=== PATIENT | female | born 1975 | race Caucasian/White ===

== ENCOUNTER 2021-07-01 17:14 | Emergency (ER) | payer OTHER, SELFPAY ==
[2021-07-01 18:15] VITALS: BP 125/82; PULSE 67; RESP 16; TEMP 36.1; O2SAT 100
--- NOTE | 2021-07-01 19:39 | PC.NURSE ---
Pt at intake desk stating I'm going to go home. I've been here for a while. I'll follow up with my doctor in the am. pt ambulated out of ED with steady gait. No distress noted.
== END 2021-07-02 03:20 | disposition left against medical advice (07) ==
LOC: ANHED 20:02
PROVIDERS: PCP Family Medicine
DX: R10.9 Unspecified abdominal pain (principal)
CPT/HCPCS: 99199

== ENCOUNTER 2023-08-27 08:21 | Outpatient (CLI) | payer OTHER, SELFPAY ==
[2023-08-27 08:48] LABS: Basophils Percent Auto 0.8 % (0.2-1.2); Eosinophils Absolute Auto 0.1 K/mm3 (0-0.3); Eosinophils Percent Auto 2.2 % (0-4.4); Hematocrit 41.7 % (37.0-47.0); Hemoglobin 12.9 g/dL (12.0-15.0); Immature Granulocyte Absolute 0.01 K/mm3 (0.00-0.031); Immature Granulocyte Percent A 0.2 % (0-0.5); Lymphocytes Absolute Auto 1.53 K/mm3 (0.9-3.2); Lymphocytes Percent Auto 30.2 % (18.3-44.2); Mean Corpuscular HGB Conc 30.9 g/dl (32-36); Mean Corpuscular Hemoglobin 26.5 pg (26-34); Mean Corpuscular Volume 85.8 fl (80-100); Mean Platelet Volume 10.4 fl (7.4-10.4); Monocytes Absolute Auto 0.3 K/mm3 (0.1-0.6); Monocytes Percent Auto 5.3 % (2.6-8.5); Neutrophils Absolute Auto 3.1 K/mm3 (1.3-6.7); Neutrophils Percent Auto 61.3 % (45.5-73.1); Platelet Count Result 279 k/mm3 (150-375); Red Blood Count 4.86 M/mm3 (4.2-5.4); Red Cell Distribution Width 15.5 % (11.5-14.5); White Blood Count 5.1 K/mm3 (4.5-10.0)
[2023-08-27 09:00] LABS: Alanine Aminotransferase 16 U/L (6-35); Albumin Level 4.3 g/dL (3.5-5.1); Alkaline Phosphatase 62 U/L (38-126); Anion Gap 6 mmol/L (8-16); Aspartate Amino Transferase 24 U/L (14-36); Bilirubin,Total 0.7 mg/dL (0.2-1.3); Blood Urea Nitrogen 13 mg/dL (7-17); Calcium 8.9 mg/dL (8.4-10.2); Carbon Dioxide 26 mmol/L (22-30); Chloride 103 mmol/L (98-107); Cholesterol 222 mg/dL (0-200); Estimated Glomerular Filt Rate > 60; Glucose 116 mg/dL (65-110); HDL Direct 80 mg/dL; Potassium 4.2 mmol/L (3.4-5.0); Sodium 135 mmol/L (137-145); Triglycerides 77 mg/dL (<150)
[2023-08-27 09:11] LABS: LDL Cholesterol Direct 111 mg/dL
[2023-08-27 09:31] LABS: Thyroid Stimulating Hormone 0.946 uIU/mL (0.465-4.680)
[2023-09-01 08:21] LABS: FSH 34.2 mIU/mL (***)
[2023-09-03 17:37] LABS: Estrogen 187 pg/mL
== END 2023-08-27 08:22 | disposition home or self-care (01) ==
LOC: ANHLAB 08:25
PROVIDERS: PCP Family Medicine; Visit Provider Family Medicine
DX: R23.2 Flushing (principal); R51.9 Headache, unspecified; Z13.220 Encounter for screening for lipoid disorders
CPT/HCPCS: 36415; 80053; 80061; 82672; 83001; 84443; 85025

== ENCOUNTER 2023-10-05 07:54 | Outpatient (CLI) | payer OTHER, SELFPAY ==
--- NOTE | ~2023-10-05 | MM_ITS ---
EXAMINATION: MM screening sammi BI w nhung HISTORY: Screening TECHNIQUE: Craniocaudal and mediolateral oblique 3-D tomosynthesis images were obtained and synthetic 2-D images were generated. CAD analysis was submitted and interpreted. COMPARISON: No prior mammogram is available for comparison at this institution. BREAST PARENCHYMAL COMPOSITION: There are scattered areas of fibroglandular density. FINDINGS: There is no evidence of suspicious mass, calcification, or architectural distortion to sugg est malignancy in either breast. There has been no suspicious interval change. IMPRESSION: 1. No mammographic evidence of malignancy. 2. Recommend routine screening mammography in one year. BI-RADS Category 1: Negative Reviewed, dictated and finalized at location A.
== END 2023-10-05 07:55 | disposition home or self-care (01) ==
LOC: ANHIMG 07:56
PROVIDERS: PCP Family Medicine; Visit Provider Family Medicine
DX: Z12.31 Encounter for screening mammogram for malignant neoplasm of breast (principal)
CPT/HCPCS: 77063; 77067

== ENCOUNTER 2023-10-31 09:14 | Emergency (ER) | payer OTHER, SELFPAY ==
[2023-10-31] VITALS (8 sets, daily range): BP systolic 118–134; BP diastolic 68–78; PULSE 58–67; RESP 14–18; TEMP 35.9; O2SAT 96–100
--- NOTE | ~2023-10-31 | XR_ITS ---
EXAMINATION: XR chest 1V portable 10/31/2023 10:06 INDICATION: Right arm and leg numbness PROCEDURE: AP portable chest COMPARISON: No prior studies for comparison. FINDINGS: The lungs are clear. The cardiomediastinal silhouette is within normal limits. There are no pleural effusions. There is no pneumothorax suspected. IMPRESSION: 1: NO ACUTE CARDIOPULMONARY DISEASE. Reviewed, dictated and finalized at location B.
--- NOTE | ~2023-10-31 | CT_ITS ---
EXAMINATION: CTA brain carotid DATE: 10/31/2023 12:02 INDICATION: Right-sided paresthesias. TECHNIQUE: Computed tomographic angiography (CTA) of the head was performed without and with 100 mL O mnipaque-350 intravenous contrast. CTA of the neck was performed with intravenous contrast. Automated exposure control and iterative reconstruction technique were employed. The dose-length product was 1 822.50 mGy-cm. Maximum intensity projection and volume rendered 3D-reconstructions were created by nicole garcia technologist on a separate workstation. COMPARISON: None. FINDINGS: HEAD CTA: There is no intracranial hemorrhage, acute infarction, or abnormal intracranial mass lesion . The ventricles are normal in size. The orbits are normal. The mastoid air cells are normal. The par anasal sinuses are clear. The vertebral arteries are codominant. There is no significant stenosis of basilar artery or the posterior cerebral arteries. The posterior communicating arteries are normal. T here is no significant stenosis of the intracranial internal carotid arteries or anterior or middle c erebral arteries. Anterior communicating artery is normal. There is no aneurysm. NECK CTA: There are no pathologically enlarged lymph nodes. There is no significant stenosis of the v ertebral arteries. There is minimal plaque in the proximal internal carotid arteries. There is 0% raimundo nosis of the proximal right internal carotid artery relative to normal distal artery lumen diameter ( NASCET criteria). There is 0% stenosis of the proximal left internal carotid artery relative to estephanie l distal artery lumen diameter. There is moderate cervical spondylosis. IMPRESSION: 1. Normal brain. No aneurysm or significant intracranial arterial stenosis. 2. 0% stenosis of the proximal internal carotid arteries relative to normal distal artery lumen diame ters (NASCET criteria). Reviewed, dictated and finalized at location A. IMPRESSION: 1. Normal brain. No aneurysm or significant intracranial arterial stenosis. 2. 0% stenosis of the proximal internal carotid arteries relative to normal dis isai artery lumen diameters (NASCET criteria).
--- NOTE | ~2023-10-31 | CT_ITS ---
EXAMINATION: CT cervical spine wo con DATE: 10/31/2023 12:02 INDICATION: Neck pain TECHNIQUE: Computed tomography (CT) of the cervical spine was performed without intravenous contrast. The dose-length product was 451 mGy-cm. Automated exposure control and iterative reconstruction technique were employed. COMPARISON: None FINDINGS: Craniovertebral junction is normal. Vertebral body heights are maintained. There is disc na rrowing at C5-6 with endplate hypertrophy. There is uncinate hypertrophy at C3-4, C4-5, C5-6 and C6-7 . There is mild facet degenerative changes at these levels. Odontoid process is normal. Craniovertebr al junction is normal. No evidence for perched facet. There is subtle ossification the posterior long itudinal ligament at C5-6. IMPRESSION: 1. No acute abnormality of the cervical spine. 2: Moderate cervical spondylosis. Reviewed, dictated and finalized at location B.
--- NOTE | 2023-10-31 09:30 | ECG_ITS ---
SEE SCANNED COPY FOR CONFIRMED REPORT. MTDD
[2023-10-31 10:01] LABS: Basophils Percent Auto 0.8 % (0.2-1.2); Eosinophils Absolute Auto 0.1 K/mm3 (0-0.3); Eosinophils Percent Auto 2.9 % (0-4.4); Hematocrit 38.6 % (37.0-47.0); Hemoglobin 12.6 g/dL (12.0-15.0); Immature Granulocyte Absolute 0.02 K/mm3 (0.00-0.031); Immature Granulocyte Percent A 0.4 % (0-0.5); Lymphocytes Absolute Auto 1.52 K/mm3 (0.9-3.2); Mean Corpuscular HGB Conc 32.6 g/dl (32-36); Mean Corpuscular Hemoglobin 27.6 pg (26-34); Mean Corpuscular Volume 84.5 fl (80-100); Mean Platelet Volume 10.6 fl (7.4-10.4); Monocytes Absolute Auto 0.3 K/mm3 (0.1-0.6); Monocytes Percent Auto 5.1 % (2.6-8.5); Neutrophils Absolute Auto 2.9 K/mm3 (1.3-6.7); Neutrophils Percent Auto 59.8 % (45.5-73.1); Platelet Count Result 289 k/mm3 (150-375); Red Blood Count 4.57 M/mm3 (4.2-5.4); Red Cell Distribution Width 14.2 % (11.5-14.5); White Blood Count 4.9 K/mm3 (4.5-10.0)
[2023-10-31 10:11] LABS: Prothrombin Time 13.8 Seconds (11.1-14.7)
[2023-10-31 10:12] LABS: Alanine Aminotransferase 15 U/L (6-35); Albumin Level 4.2 g/dL (3.5-5.1); Alkaline Phosphatase 61 U/L (38-126); Anion Gap 4 mmol/L (4-12); Aspartate Amino Transferase 24 U/L (14-36); Bilirubin,Total 0.5 mg/dL (0.2-1.3); Blood Urea Nitrogen 15 mg/dL (7-17); Calcium 8.6 mg/dL (8.4-10.2); Carbon Dioxide 24 mmol/L (22-30); Chloride 108 mmol/L (98-107); Estimated CRCL calculation 136 ml/min; Estimated Glomerular Filt Rate > 60; Glucose 108 mg/dL (65-110); Partial Thromboplastin Time 27.4 Seconds (22.3-36.8); Potassium 4.3 mmol/L (3.4-5.0); Sodium 136 mmol/L (137-145)
[2023-10-31 10:24] LABS: Troponin I < 0.012 ng/mL (0.000-0.034)
--- NOTE | 2023-10-31 11:23 | ED.NEUROSD ---
HPI - Neuro Symptoms/Deficit General Chief Complaint: Neuro Symptoms/Deficit Stated Complaint: right sided numbness Time Seen by Provider: 10/31/23 11:20 Source: patient and family ( sister and son) Mode of arrival: ambulatory Limitations: no limitations History of Present Illness HPI Narrative: patient presents with right-sided pain and numbness beginning Tuesday night at approximately 8:30 p.m.. She noticed it first in her shoulder and later in her leg. Last known well therefore 3 days ago. She also had a headache and right sided facial pain. 12 hour Aleve helped. No trauma. She thought perhaps it was a muscle spasm. No confusion or slurred speech of facial asymmetry noted by patient or family who present with her. Related Data Allergies Allergy/AdvReac Type Severity Reaction Status Date / Time No Known Allergies Allergy Verified 08/22/23 09:06 [facility] Past Medical History Medical History Cholecystectomy planned Headache Hot flashes Morbid obesity Screening for lipid disorders Surgical History Surgical History H/O tubal ligation Hx of section Family History Family History Grandparent Hypertension Cerebrovascular accident Family history of heart disease in male family member before age 55 Depression Sibling Family history of malignant neoplasm of breast in first degree relative Breast cancer Father Diabetes mellitus Mother Hypertension Other Cholecystectomy planned Social History Social History Smoking status: Former smoker Tobacco type: cigarettes Second hand tobacco smoke exposure: Yes Alcohol intake: current Substance use: never Substance use type: does not use Do You Feel Safe in your Home?: Yes Lack of Transportation: No Lack of Food: Never True Current Housing: I Have Housing Concerned About Future Housing: No Difficulty Paying Gas/Electric Bills: No Difficulty Paying for Meds: No Currently Unemployed: No Education: Trade/Vocational Certificate Difficulty w/ Childcare or Family Care: No Living arrangements: with family Additional living arrangements comments: Has a son Occupation/Education: occupation Additional occupation/education comments: [employer] Gender identity (if verbalized by the patient): Female Exam Narrative: GENERAL: Well-appearing, well-nourished, and in no acute distress. HEAD: Normocephalic, atraumatic. EYES: Non injected, non icteric. Visual phillips intact. No gaze palsy. EOMI. ENT: Nares clear, no rhinorrhea or epistaxis. NECK: Supple. CHEST: Speaking in full sentences. No respiratory distress. HEART: Regular rate and rhythm. . ABDOMEN: Soft, nondistended. EXTREMITIES: Normal range of motion. No edema. SKIN: Warm, dry, no rash. NEURO: No focal deficits. Alert and oriented x3. Sensation symmetric R and Left UE and LE per patient to gross touch. Speaks clearly without aphasia. Facial movements symmetric. PSYCH: Normal mood and affect. Course Vital Signs Vital signs: Vital Signs Temperature 96.6 F L 10/31/23 09:15 Pulse Rate 66 10/31/23 09:15 Respiratory Rate 18 10/31/23 09:15 Blood Pressure 118/72 10/31/23 09:15 Pulse Oximetry 100 10/31/23 09:15 Oxygen Delivery Room Air 10/31/23 09:15 Temperature 96.6 F L 10/31/23 09:15 Pulse Rate 63 10/31/23 13:15 Respiratory Rate 14 10/31/23 13:15 Blood Pressure 132/70 10/31/23 13:15 Pulse Oximetry 100 10/31/23 13:15 Oxygen Delivery Room Air 10/31/23 09:15 MDM - Neuro Symptoms/Deficit MDM Narrative Medical decision making narrative: This is a 48 year old F who presents to the emergency department with unilateral paresthesias. Last known well is 3 days ago. The patient is prote
[2023-10-31 12:18] LABS: Magnesium 2.2 mg/dL (1.6-2.3)
[2023-10-31 12:30] LABS: Creatine Kinase 118 U/L (30-135)
== END 2023-10-31 13:15 | disposition home or self-care (01) ==
PROVIDERS: Emergency Provider Student in an Organized Health Care Education/Training Program; PCP Family Medicine
DX: M47.812 Spondylosis without myelopathy or radiculopathy, cervical region (principal); R20.2 Paresthesia of skin; E66.01 Morbid (severe) obesity due to excess calories; Z68.41 Body mass index [BMI] 40.0-44.9, adult; Z87.891 Personal history of nicotine dependence
CPT/HCPCS: 36415; 70496; 70498; 71045; 72125; 80053; 81025; 82550; 83735; 84484; 85025; 85610; 85730; 93005; 99284; Q9967

== ENCOUNTER 2023-11-30 09:57 | Outpatient (CLI) | payer OTHER, SELFPAY ==
--- NOTE | 2023-11-30 11:10 | NEURO_ITS ---
Impression: # Complains of numbness of upper and lower extremities. Not diabetic. # Normal Nerve Conduction Study. # Normal needle/EMG exam. # Clinical correlation recommended. Nerve Conduction Studies Anti Sensory Summary Table Stim Site NR Peak (ms) P-T Amp (?V) Site1 Site2 Delta-P (ms) Dist (cm) Gil (m/s) Left Median Anti Sensory (2-3nd Digit) Wrist 3.6 92.5 Wrist 2-3nd Digit 3.6 14.0 39 Wrist 3.6 94.6 Wrist 2-3nd Digit 3.6 14.0 39 Right Median Anti Sensory (2-3nd Digit) Wrist 3.1 72.6 Wrist 2-3nd Digit 3.1 14.0 45 Wrist 3.3 48.5 Wrist 2-3nd Digit 3.1 14.0 45 Left Radial Anti Sensory (Base 1st Digit) Wrist 1.8 23.1 Wrist Base 1st Digit 1.8 0.0 Right Radial Anti Sensory (Base 1st Digit) Wrist 2.0 26.1 Wrist Base 1st Digit 2.0 0.0 Left Sup Fibular Anti Sensory (Ant Lat Mall) 14 cm 2.9 9.7 14 cm Ant Lat Mall 2.9 16.0 55 Right Sup Fibular Anti Sensory (Ant Lat Mall) 14 cm 3.5 5.0 14 cm Ant Lat Mall 3.5 16.0 46 Left Sural Anti Sensory (Lat Mall) Calf 3.4 6.7 Calf Lat Mall 3.4 16.0 47 Right Sural Anti Sensory (Lat Mall) Calf 3.6 5.0 Calf Lat Mall 3.6 16.0 44 Left Ulnar Anti Sensory (5th Digit) Wrist 2.8 52.3 Wrist 5th Digit 2.8 14.0 50 Right Ulnar Anti Sensory (5th Digit) Wrist 2.3 81.8 Wrist 5th Digit 2.3 14.0 61 Motor Summary Table Stim Site NR Onset (ms) O-P Amp (mV) Site1 Site2 Delta-0 (ms) Dist (cm) Gil (m/s) Left Median Motor (Abd Poll Brev) Wrist 3.2 4.4 Elbow Wrist 4.5 26.0 58 Elbow 7.7 3.5 Right Median Motor (Abd Poll Brev) Wrist 3.1 4.8 Elbow Wrist 4.4 26.0 59 Elbow 7.5 3.4 Left Peroneal Motor (Vastus Med) Ankle 3.6 1.9 Popit Ankle 7.3 39.0 53 Popit 10.9 1.5 Right Peroneal Motor (Vastus Med) Ankle 3.5 1.7 Popit Ankle 6.6 37.0 56 Popit 10.1 0.9 Left Tibial Motor (Abd [place] Brev) Ankle 3.8 6.5 Knee Ankle 8.0 40.0 50 Knee 11.8 4.7 Right Tibial Motor (Abd [place] Brev) Ankle 4.0 1.3 Knee Ankle 7.6 39.0 51 Knee 11.6 2.1 Left Ulnar Motor (Abd Dig Minimi) Wrist 2.4 7.4 A Elbow Wrist 4.6 28.0 61 A Elbow 7.0 2.7 Right Ulnar Motor (Abd Dig Minimi) Wrist 2.5 7.6 A Elbow Wrist 4.6 27.0 59 A Elbow 7.1 5.8 F Wave Studies NR F-Lat (ms) L-R F-Lat (ms) Left Median (Mrkrs) (Abd Poll Brev) 26.95 0.43 Right Median (Mrkrs) (Abd Poll Brev) 26.52 0.43 Left Peroneal (Mrkrs) (EDB) 44.54 0.49 Right Peroneal (Mrkrs) (EDB) 45.03 0.49 Left Tibial (Mrkrs) (Abd Hallucis) 44.72 0.04 Right Tibial (Mrkrs) (Abd Hallucis) 44.68 0.04 Left Ulnar (Mrkrs) (Abd Dig Min) 25.94 1.25 Right Ulnar (Mrkrs) (Abd Dig Min) 24.69 1.25 EMG Side Muscle Nerve Root Ins Act Fibs Amp Dur Recrt Comment Right 1stDorInt Ulnar C8-T1 Nml Nml Nml Nml Nml Right Ext Indicis Radial (Post Int) C7-8 Nml Nml Nml Nml Nml Right Ext Digitorum Radial (Post Int) C7-8 Nml Nml Nml Nml Nml Right BrachioRad Radial C5-6 Nml Nml Nml Nml Nml Right PronatorTeres Median C6-7 Nml Nml Nml Nml Nml Right Abd Poll Brev Median C8-T1 Nml Nml Nml Nml Nml Right ABD Dig Min Ulnar C8-T1 Nml Nml Nml Nml Nml Right AntTibialis Dp Br Fibular L4-5 Nml Nml Nml Nml Nml Right Gas
== END 2023-11-30 09:58 | disposition home or self-care (01) ==
LOC: ANHNEURO 09:58
PROVIDERS: PCP Family Medicine; Visit Provider Nurse Practitioner Adult Health
DX: M47.22 Other spondylosis with radiculopathy, cervical region (principal)
CPT/HCPCS: 95886; 95913

== ENCOUNTER 2024-01-14 07:09 | Outpatient (CLI) | payer OTHER, SELFPAY ==
--- NOTE | ~2024-01-14 | MR_ITS ---
EXAMINATION: MR brain/brain stem wo con DATE: 01/14/2024 08:23 INDICATION: Intractable migraine headaches TECHNIQUE: Magnetic resonance imaging (MRI) of the brain and brainstem was performed without intraven ous contrast. Sequences included sagittal and axial T1-weighted SE, axial diffusion-weighted FS SE, a xial 3D SWAN, axial T2-weighted FLAIR, and axial T2-weighted FSE. Apparent diffusion coefficient (ADC ) maps were created. COMPARISON: Head CT and CT angiogram dated 10/31/2023 FINDINGS: There are no areas of restricted diffusion to suggest acute infarction. No intracranial hemorrhage or abnormal intracranial mass lesion. There are no intraparenchymal signal abnormalities seen on the ot her pulse sequences. The ventricles are symmetric and normal in size. There are no abnormal extra-axi al fluid collections. Flow voids are seen in the cerebral arteries on the T2-weighted sequences consi stent with their expected patency. Visualized orbits and soft tissues are unremarkable. IMPRESSION: 1. Normal brain Reviewed, dictated and finalized at location A. IMPRESSION: 1. Normal brain
== END 2024-01-14 07:10 | disposition home or self-care (01) ==
LOC: ANHIMG 07:21
PROVIDERS: PCP Family Medicine; Visit Provider Nurse Practitioner Family
DX: G43.909 Migraine, unspecified, not intractable, without status migrainosus (principal)
CPT/HCPCS: 70551

== ENCOUNTER 2025-04-25 11:03 | Emergency (ER) | payer OTHER, SELFPAY ==
--- NOTE | 2025-04-25 11:26 | ED_ITS ---
HPI - General Adult General Chief complaint: Animal Bite Stated complaint: cat bite Time Seen by Provider: 04/25/25 11:07 History of Present Illness HPI narrative: This is a 50-year-old female bit by a kitten. The patient was in the process of moving and had her door open. She heard her dog barking and soft 2 CT of the house. However the left their kid behind. When she tried to shoo the can out of the house and bit her on the tip of her pinky the right hand and scratched her arms. This is a feral cat that lives around the apartment complex across the street from her. It was acting normally. The bite was provoked. Related Data Allergies Allergy/AdvReac Type Severity Reaction Status Date / Time No Known Allergies Allergy Verified 04/25/25 11:41 [facility] Past Medical History Medical History Migraine Radiculopathy with lower extremity symptoms Radiculopathy due to cervical spondylosis Radiculopathy affecting upper extremity Screening for lipid disorders Headache Hot flashes Cholecystectomy planned Morbid obesity Surgical History Surgical History H/O tubal ligation Hx of section Family History Family History Grandparent Hypertension Cerebrovascular accident Family history of heart disease in male family member before age 55 Depression Sibling Family history of malignant neoplasm of breast in first degree relative Breast cancer Father Diabetes mellitus Mother Hypertension Other Cholecystectomy planned Social History Social History Smoking status: Former smoker Tobacco type: cigarettes Second hand tobacco smoke exposure: Yes Alcohol intake: current Substance use: never Substance use type: does not use Do You Feel Safe in your Home?: Yes Lack of Transportation: No Lack of Food: Never True Current Housing: I Have Housing Concerned About Future Housing: No Difficulty Paying Gas/Electric Bills: No Difficulty Paying for Meds: No Currently Unemployed: No Education: Trade/Vocational Certificate Difficulty w/ Childcare or Family Care: No Living arrangements: with family Additional living arrangements comments: Has a son Occupation/Education: occupation Additional occupation/education comments: [employer] Gender identity (if verbalized by the patient): Female Exam Narrative: APPEARANCE: No apparent distress. Head: atraumatic. EYES: EOMI, NOSE: Atraumatic NECK: Trachea midline RESPIRATORY: No increased rate of breathing clear to auscultation CARDIOVASCULAR: RRR, no peripheral edema ABDOMINAL: Non-distended MUSCULOSKELETAl: No obvious deformities NEURO: Alert. Moving 4/4 extremities SKIN:: Warm, dry. Normal color PSYCHIATRIC: Normal affect Course Vital Signs Vital signs: Vital Signs Temperature 97.6 F 04/25/25 11:39 Pulse Rate 67 04/25/25 11:39 Respiratory Rate 14 04/25/25 11:39 Blood Pressure 148/92 H 04/25/25 11:39 Pulse Oximetry 99 04/25/25 11:39 Temperature 97.6 F 04/25/25 11:39 Pulse Rate 67 04/25/25 11:39 Respiratory Rate 14 04/25/25 11:39 Blood Pressure 148/92 H 04/25/25 11:39 Pulse Oximetry 99 04/25/25 11:39 Medical Decision Making MDM Narrative Medical decision making narrative: -Course: 50-year-old female presenting after being bit finger by a feral kitten. The wound has already been washed with soap and water. She is given a tetanus booster and Augmentin. Case was discussed with our public health nurse. Locally they were able to apprehend the culpable feline. The cat has been incarcerated and will be monitored for 10 days time. Patient will follow-up with animal control as needed. She was given strict return precautions for signs of infection. Patient verbalized understanding. -DDX includes but is not limited to: Cat bite, rabies exposure, Vital Signs Vital Signs: Vital Signs Temperature 97.6 F 04/25/25 11:39 Pulse Rate 67 04/25/25 11:39 Respiratory Rate 14 04/25/25 11:39 Blood Pressure 148/92 H 04/25/25 11:39 Pulse Oximetry 99 04/25/25 11:39 Temperature 97.6 F 04/25/25 11:39 Pulse Rate 67 04/25/25 11:39 Respiratory Rate 14 04/25/25 11:39 Blood Pressure 148/92 H 04/25/25 11:39 Pulse Oximetry 99 04/25/25 11:39 Discharge Plan Discharge Clinical Impression: Cat bite Patient Disposition: Home Condition: Stable Instructions: Antibiotic Form, Animal Bite (ED) Additional Instructions: You were seen in the emergency department for a caput. Please take the antibiotics prescribed as instructed. If you develop signs of infection like increased pain or redness please return emergency department for re-evaluation. Please continue working with the animal control as you may need rabies vaccination. Patient Language: Persian Prescriptions: New amoxicillin-pot clavulanate 875-125 mg tablet 1 tablet PO Q12H Qty: 20 0RF No Action sumatriptan succinate [Imitrex] 100 mg tablet 100 mg PO ONCE Qty: 14 6RF Rx Instructions: 1 tablet at onset along with naproxen 500 mg may repeat after 6-8 hours if necessary maximum 2 doses each naproxen 500 mg tablet 500 mg PO BID PRN (Reason: pain) Qty: 60 2RF Follow-up/Referrals: Mitchell Reyes MD [Primary Care Provider, Family Practice]
[2025-04-25 11:39] VITALS: BP 148/92; PULSE 67; RESP 14; TEMP 36.4; O2SAT 99
[2025-04-25] MEDS: TETANUS,DIPHTHERIA,AC PERTUSSIS ADULT (0.5 ML) BOOSTRIX IM (11:42)
--- OUTSIDE RECORDS SUMMARY | 2025-04-25 12:13 | XMS_ITS | Clinical Summary ---
Author Organization [facility] al Address [address] [place] [address] Care Team Providers Care Associate Software Development Engineer Name Role Phone Mitchell Reyes MD Primary Care Provider [phone] Allergies Active Allergy Reactions Criticality Noted Date Comments Naproxen Dizziness Low 11/23/2023 Social History Tobacco Use Types Packs/Day Years Used Date Smoking Tobacco: Former Cigarettes Tobacco Cessation:Counseling Given: Not Answered Personal Safety Answer Date Recorded Have you ever been in or are you currently in a harmful physical or emotional relationship or is someone making you feel afraid or unsafe? Denies 11/23/2023 Comments Unknown Sex and Gender Information Value Date Recorded Sex Assigned at Not on file Legal Sex Female 12:02 PM CDT Gender Identity Not on file Sexual Orientation Not on file Obstetrics History Last Filed Vital Signs Vital Sign Reading Time Taken Comments Blood Pressure 123/78 11/23/2023 12:32 PM CDT Pulse 65 11/23/2023 12:32 PM CDT Temperature 36.4 C (97.6 F) 11/23/2023 12:32 PM CDT Respiratory Rate 16 11/23/2023 12:32 PM CDT Oxygen Saturation 97% 11/23/2023 12:32 PM CDT Inhaled Oxygen Concentration - - Weight 106.6 kg (235 lb) 11/23/2023 12:32 PM CDT Height 157.5 cm (5' 2) 11/23/2023 12:32 PM CDT Body Mass Index 42.98 11/23/2023 12:32 PM CDT Plan of Treatment Health Maintenance Due Date Last Done Comments Breast Cancer Screening-Mammogram 1974 Cervical Cancer Screening 1974 Colon Cancer Screening-Colonoscopy 1974 Depression Screening 1974 Hepatitis C Screening 1974 DTaP/Tdap/Td Vaccine (1 - Tdap) 1985 Hepatitis B Screening 1992 Regular Well Visit/Exam 18-64 1992 Zoster Vaccine (1 of 2) 2024 Influenza Vaccine (#1) 2025 Pneumococcal vaccine <65 Aged Out No longer eligible based on patient's age to complete this topic Insurance [facility] CHOICE PLUS [facility] CHOICE PLUS Care Teams Associate Software Development Engineer Relationship Specialty Start Date End Date Mitchell Reyes MD [address] [place] [address] PCP - General Family Medicine 11/23/23
--- OUTSIDE RECORDS SUMMARY | 2025-04-25 13:11 | XMS_ITS | Clinical Summary ---
Author Organization [facility] al Address [address] [place] [address] Care Team Providers Care Manufacturing Leader Name Role Phone Mitchell Reyes MD Primary Care Provider [phone] Allergies Active Allergy Reactions Criticality Noted Date [...] patient's age to complete this topic Insurance [facility] [place] [address] [facility] [address] [facility] CHO[facility] PL[facility] Care Teams Manufacturing Leader Relationship Specialty Start Date End Date Mitchell Reyes MD [address] [place] [place] [address] PCP - General Family Medicine 11/23/23
== END 2025-04-25 12:46 | disposition home or self-care (01) ==
PROVIDERS: Emergency Provider Emergency Medicine; PCP Family Medicine
DX: S61.256A Open bite of right little finger without damage to nail, initial encounter (principal); Z23 Encounter for immunization; E66.01 Morbid (severe) obesity due to excess calories; Z68.41 Body mass index [BMI] 40.0-44.9, adult; Z87.891 Personal history of nicotine dependence; W55.01XA Bitten by cat, initial encounter
CPT/HCPCS: 90471; 90715; 99283; A9270